=== PATIENT | male | born 1995 | race Caucasian/White ===

== ENCOUNTER 2019-08-09 18:43 | Emergency (ER) | payer OTHER, SELFPAY ==
[2019-08-09 18:48] VITALS: BP 149/81; PULSE 94; RESP 16; TEMP 36.9; O2SAT 96; BMI 25.1
--- NOTE | 2019-08-09 19:05 | XR_ITS ---
WS: [id number] XR knee RT 3V* [id number] REASON FOR EXAM: pain/trauma FINDINGS: The meniscal spaces are normal. The patella tibial space is normal as well as the patella t ibial articulation. No destructive changes or fractures. XR/XR knee RT 3V* [id number] IMPRESSION: Negative right knee.
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
[2019-08-09] MEDS: tetanus-dipt-pertussis 0.5 mL SDV IM (19:19)
[2019-08-09] MEDS: cephALEXin 500 mg Capsule PO (20:29)
[2019-08-09 20:33] VITALS: BP 134/76; PULSE 74; RESP 16; O2SAT 99
== END 2019-08-09 20:34 | disposition home or self-care (01) ==
PROVIDERS: Emergency Provider Nurse Practitioner Family
DX: S01.81XA Laceration without foreign body of other part of head, initial encounter (principal); S81.812A Laceration without foreign body, left lower leg, initial encounter; V29.9XXA Motorcycle rider (driver) (passenger) injured in unspecified traffic accident, initial encounter; Z23 Encounter for immunization
CPT/HCPCS: 12001; 12013; 12345; 73562; 90715; 99281; 99283; J2001

== ENCOUNTER 2019-09-03 06:13 | Observation (INO) | payer OTHER, SELFPAY ==
[2019-09-03] VITALS (24 sets, daily range): BP systolic 100–148; BP diastolic 50–82; PULSE 57–101; RESP 8–26; TEMP 36.8–37.3; O2SAT 92–100; BMI 24.3
--- NOTE | 2019-09-03 06:32 | ECG_ITS ---
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 Measurements Intervals [place] Rate: 73 P: 66 [place]: 193 QRS: 56 QRSD: 101 T: 40 QT: 345 QTc: 380 Interpretive Statements SINUS RHYTHM POSSIBLE RIGHT VENTRICULAR CONDUCTION DELAY [RSR (QR) IN V1/V2] INTERPRETATION BASED ON A DEFAULT AGE OF 40 YEARS Compared to ECG 01/05/2018 16:20:20 Incomplete right bundle-branch block no longer present Electronically Signed On 09-03-2019 19:04:32 CDT by Simi Cardona M.D. [id number] f
--- NOTE | 2019-09-03 06:32 | CTR_ITS ---
PROCEDURE INFORMATION: Exam: CT Head Without Contrast Exam date and time: 09/03/2019 6:34 AM Age: 23 years old Clinical indication: Other: Seizure; Additional info: Seizure, head injury 2 weeks ago TECHNIQUE: Imaging protocol: Computed tomography of the head without contrast. Radiation optimization: All CT scans at this facility use at least one of these dose optimization techniques: automated exposure control; mA and/or kV adjustment per patient size (includes targeted exams where dose is matched to clinical indication); or iterative reconstruction. COMPARISON: CT head wo con* [id number] 01/05/2018 9:04 AM RADIATION DOSE METRICS: Total DLP (mGy-cm): 862.49 FINDINGS: Brain: No acute intracranial hemorrhage or mass effect. No definite acute infarct by CT. MRI could be more sensitive/specific for detection, as clinically directed. Ventricles: Ventricle size is normal for age. Bones/joints: No definite acute skull fracture. Sinuses: Included paranasal sinuses are essentially clear. Mastoid air cells: No significant acute finding. CT/CT head wo con* [id number] IMPRESSION: 1. No acute intracranial hemorrhage or mass effect. 2. No definite acute infarct by CT, see above. 3. Other findings discussed above. Radiation Dose CTDIVOL = (mGy): DLP = 862.49 (mGy-cm)
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
[2019-09-03] MEDS: LORazepam 2 mg/mL INJ 1 mL (08:28)
[2019-09-03] MEDS: LORazepam 2 mg/mL INJ 1 mL 1 MG IVP (08:28)
[2019-09-03] MEDS: LORazepam 2 mg/mL INJ 1 mL IVP ×2 (08:30)
[2019-09-03] MEDS: sodium chloride 0.9% 1,000 mL Bolus 999 ML IV (09:08)
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
[2019-09-03 09:55] LABS: Basophils # 0.1 10^3/uL (0.0-0.1); Basophils % 0.4 %; Eosinophils # 0.1 10^3/uL (0.0-0.8); Eosinophils % 0.5 %; Hematocrit 41.1 % (42.0-52.0); Hemoglobin 13.3 g/dL (11.7-16.6); Lymphocytes # 1.5 10^3/uL (0.8-4.8); Lymphocytes % 8.8 %; Mean Corpuscular HGB Conc 32.4 g/dL (30.0-36.0); Mean Corpuscular Hemoglobin 27.9 pg (28.0-34.0); Mean Corpuscular Volume 86.2 fL (80-94); Mean Platelet Volume 8.9 fL (7.4-10.4); Monocytes # 0.7 10^3/uL (0.2-0.9); Monocytes % 4.3 %; Neutrophils # 14.26 10^3/uL (1.8-7.7); Neutrophils % 85.5 %; Nucleated Red Blood Cells % 0 %; Platelet Count 316 10^3/cmm (130-400); Red Blood Count 4.77 10^6/uL (4.1-5.3); Red Cell Distribution Width 13.4 % (12.1-15.1); White Blood Count 16.7 10^3/uL (4.0-10.0)
--- NOTE | 2019-09-03 09:55 | PC.NURSE ---
At 0822 patient soft restraints removed and patient moved to restraint bed. Physician, security, and nursing staff at bedside.
[2019-09-03 10:06] LABS: Amphetamines Screen Urine Negative (Negative); Barbiturates Screen Urine Negative (Negative); Benzodiazepines Screen Urine Negative (Negative); Cocaine Screen Urine Negative (Negative); Opiate Screen Urine Negative (Negative); PCP Screen Urine Negative (Negative); THC Screen Urine Positive (Negative)
[2019-09-03 10:09] LABS: Add Urine Microscopic? YES; Bilirubin Urine Neg (NEGATIVE); Blood Urine 2+ (Negative); Glucose Urine UA Norm (Normal); Ketones Urine 1+ (Negative); Leukocyte Esterase Urine Negative (Negative); Nitrate Urine Negative (Negative); Protein Urine Neg (Negative); Urine Appearance Clear (CLEAR); Urine Color Yellow (Yellow); Urobilinogen Urine Norm (Negative); pH Urine 5 (5-7)
[2019-09-03 10:10] LABS: Add Urine Culture? No; Bacteria Urine TRACE; RBC Urine 0-4 /hpf (0-2)
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
[2019-09-03 10:14] LABS: Creatine Phosphokinase 290 U/L (39-308)
[2019-09-03 10:15] LABS: Alanine Aminotransferase 26 U/L (0-41); Albumin Level 4.5 g/dL (3.5-5.2); Alkaline Phosphatase 72 IU/L (40-130); Anion Gap 14.5 (5-19); Aspartate Amino Transferase 22 U/L (0-40); Blood Urea Nitrogen 11 mg/dL (6-20); Calcium 8.9 mg/dL (8.5-10.5); Carbon Dioxide 21 mmol/L (22-29); Chloride 108 mmol/L (98-107); Globulin 2.4 g/dL (1.3-4.6); Glomerular Filtration Rate 117.8 mL/min (90-130); Glucose 109 mg/dL (65-115); Osmolality Calculated 287 mOsm/kg (285-295); Potassium 3.5 mmol/L (3.5-5.1); Sodium 140 mmol/L (136-145); Total Bilirubin 0.4 mg/dL (0.15-1.2); Total Protein 6.9 g/dL (6.6-8.7)
--- NOTE | 2019-09-03 10:15 | PC.NURSE ---
this nurse tried to call and give report to ICU nurse
--- NOTE | 2019-09-03 10:15 | PC.NURSE ---
This nurse called to give report to ICU nurse. ICU did not take report at this time.
[2019-09-03 10:38] LABS: CKMB 2.3 ng/mL (0-10.4)
[2019-09-03 12:36] LABS: Thyroid Stimulating Hormone 0.81 uIU/mL (0.27-4.20)
--- NOTE | 2019-09-03 13:52 | PC.NURSE ---
verified ok to stop sitter at this time
--- NOTE | 2019-09-03 14:33 | PC.NURSE ---
pt resting quietly clairifed one on one sitter removed
--- NOTE | 2019-09-03 15:36 | PC.NURSE ---
awake up in room voided at this time . alert and cooperative
[2019-09-03] MEDS: sodium chloride 0.9% 1,000 ML 50 ML IV (15:37)
[2019-09-04] VITALS (11 sets, daily range): BP systolic 100–145; BP diastolic 50–76; PULSE 66–92; RESP 13–25; TEMP 36.8–37.3; O2SAT 98; BMI 24.3
--- NOTE | 2019-09-04 01:56 | PC.NURSE ---
patient watching tv, no complaints at this time. night has been uneventful with no seizure activity noted. patients v/s are wnl tele sr. also patient is neurologically intact . bed is padded for safety. 20g iv patent in rfa.
[2019-09-04 05:49] LABS: Basophils # 0.1 10^3/uL (0.0-0.1); Basophils % 0.6 %; Eosinophils # 0.2 10^3/uL (0.0-0.8); Eosinophils % 2.1 %; Hematocrit 39.5 % (42.0-52.0); Hemoglobin 12.7 g/dL (11.7-16.6); Lymphocytes # 1.8 10^3/uL (0.8-4.8); Mean Corpuscular HGB Conc 32.2 g/dL (30.0-36.0); Mean Corpuscular Hemoglobin 27.9 pg (28.0-34.0); Mean Corpuscular Volume 86.8 fL (80-94); Mean Platelet Volume 9.2 fL (7.4-10.4); Monocytes # 0.6 10^3/uL (0.2-0.9); Monocytes % 5.1 %; Nucleated Red Blood Cells % 0 %; Platelet Count 303 10^3/cmm (130-400); Red Blood Count 4.55 10^6/uL (4.1-5.3); Red Cell Distribution Width 13.7 % (12.1-15.1); White Blood Count 10.8 10^3/uL (4.0-10.0)
--- NOTE | 2019-09-04 08:38 | PM.DCS ---
Discharge Providers Date of Admission: 09/03/19 09:18 Date of Discharge: September 04, 2019 Attending Provider at Admission: Ashlee De Oliveira DO Attending Provider at Discharge: Jaycob Banuelos MD Diagnoses at Discharge Discharge Diagnosis (1) Grand mal seizure disorder: Status: Acute Problem details: Restart patient's Keppra 750 mg twice daily. Reason for Visit Reason for Visit: seizure Hospital Course Hospital Course: Herrera is a 23-year-old white male who presents to the hospital with seizure. He had taken himself off his Keppra about 6 months ago. Later he confided to nursing he also used some LSD. While in the ICU he recovered and had no further seizures after being put on IV Keppra. It was thought he could go home on September 03 as he was stable. He was counseled on seizure precautions of no swimming, no driving until cleared by neurology and no drug or alcohol use. Physical Exam Narrative: EXAM NARRATIVE: General exam is no apparent distress Cardiovascular regular in rhythm without murmur Lungs clear Abdomen is soft positive bowel sounds Extremities no cyanosis clubbing or edema Neuro no focal deficits Discharge Data Data Completed and Pending: Completed Studies During Hospitalization Category Date Time Status CT head wo con* 7 0450 Stat Cat Scan 09/03/19 06:32 Completed Pending at discharge Category Date Time Status Complete Blood Co unt w/Auto AM LABS Lab 09/05/19 04:00 Ordered Complete Blood Co unt w/Auto AM LABS Lab 09/06/19 04:00 Ordered Labs from last 24 hours 09/04/19 09/03/19 09/03/19 04:59 09:38 09:38 WBC 10.8 H RBC 4.55 Hgb 12.7 Hct 39.5 L MCV 86.8 MCH 27.9 L MCHC 32.2 RDW 13.7 Plt Count 303 MPV 9.2 Neut % (Auto) 75.0 Lymph % (Auto) 17.0 [place] % (Auto) 5.1 Eos % (Auto) 2.1 Baso % (Auto) 0.6 Neut # (Auto) 8.10 H Lymph # (Auto) 1.8 [place] # (Auto) 0.6 Eos # (Auto) 0.2 Baso # (Auto) 0.1 Nucleated RBC % (a uto) 0 Nucleated RBCs # 0.0 Sodium Potassium Chloride Carbon Dioxide Anion Gap BUN Creatinine GFR Calculation Glucose Calculated Osmolal ity Calcium Total Bilirubin AST ALT Alkaline Phosphata se Creatine Kinase 290 CK-MB (CK-2) 2.3 CK-MB (CK-2) Rel I ndex Total Protein Albumin Globulin TSH 0.81 Urine Color Urine Appearance Urine pH Ur Specific Gravit y Urine Protein Urine Glucose (UA) Urine Ketones Urine Blood Urine Nitrate Urine Bilirubin Urine Urobilinogen Ur Leukocyte Corrine ase Urine RBC Urine WBC Ur Squamous Epith Cells Amorphous Sediment Urine Bacteria Urine Opiates Scre en Ur Barbiturates Sc reen Ur Phencyclidine S crn Ur Amphetamines Sc reen U Benzodiazepines Scrn Urine Cocaine Scre en U Marijuana (THC) Screen 09/03/19 09/03/19 09/03/19 09:38 09:38 09:37 WBC 16.7 H RBC 4.77 Hgb 13.3 Hct 41.1 L MCV 86.2 MCH 27.9 L MCHC 32.4 RDW 13.4 Plt Count 316 MPV 8.9 Neut % (Auto) 85.5 Lymph % (Auto) 8.8 [place] % (Auto) 4.3 Eos % (Auto) 0.5 Baso % (Auto) 0.4 Neut # (Auto) 14.26 H Lymph # (Auto) 1.5 [place] # (Auto) 0.7 Eos # (Auto) 0.1 Baso # (Auto) 0.1 Nucleated RBC % (a uto) 0 Nucleated RBCs # 0.0 Sodium 140 Potassium 3.5 Chloride 108 H Carbon Dioxide 21 L Anion Gap 14.5 BUN 11 Creatinine 0.8 GFR Calculation 117.8 Glucose 109 Calculated Osmolal ity 287 Calcium 8.9 Total Bilirubin 0.4 AST 22 ALT 26 Alkaline Phosphata se 72 Creatine Kinase CK-MB (CK-2) CK-MB (CK-2) Rel I ndex Total Protein 6.9 Albumin 4.5 Globulin 2.4 TSH Urine Color Urine Appearance Urine pH Ur Specific Gravit y Urine Protein Urine Glucose (UA) Urine Ketones Urine Blood Urine Nitrate Urine Bilirubin Urine Urobilinogen Ur Leukocyte Corrine ase Urine RBC Urine WBC Ur Squamous Epith Cells Amorphous Sediment Urine Bacteria Urine Opiates Scre en Negative Ur Barbiturates Sc reen Negative Ur Phencyclidine S crn Negative Ur Amphetamines Sc reen Negative U Benzodiazepines Scrn Negative Urine Cocaine Scre en Negative U Marijuana (THC) Screen Positive H 09/03/19 09:37 WBC RBC Hgb Hct MCV MCH MCHC RDW Plt Count MPV Neut % (Auto) Lymph % (Auto) [place] % (Auto) Eos % (Auto) Baso % (Auto) Neut # (Auto) Lymph # (Auto) [place] # (Auto) Eos # (Auto) Baso # (Auto) Nucleated RBC % (a uto) Nucleated RBCs # Sodium Potassium Chloride Carbon Dioxide Anion Gap BUN Creatinine GFR Calculation Glucose Calculated Osmolal ity Calcium Total Bilirubin AST ALT Alkaline Phosphata se Creatine Kinase CK-MB (CK-2) CK-MB (CK-2) Rel I ndex Total Protein Albumin Globulin TSH Urine Color Yellow Urine Appearance Clear Urine pH 5 Ur Specific Gravit y 1.020 Urine Protein Neg Urine Glucose (UA) Norm Urine Ketones 1+ H Urine Blood 2+ H Urine Nitrate Negative Urine Bilirubin Neg Urine Urobilinogen Norm Ur Leukocyte Corrine ase Negative Urine RBC 0-4 H Urine WBC None Ur Squamous Epith Cells None Amorphous Sediment Not Reportable Urine Bacteria Trace Urine Opiates Scre en Ur Barbiturates Sc reen Ur Phencyclidine S crn Ur Amphetamines Sc reen U Benzodiazepines Scrn Urine Cocaine Scre en U Marijuana (THC) Screen Vitals: Last Vital Signs Temp 98.3 F 09/04/19 08:00 Pulse 83 09/04/19 08:00 Resp 13 09/04/19 08:00 BP 118/62 09/04/19 08:00 Pulse Ox 98 09/04/19 05:00 Discharge Plan Discharge Patient Disposition: Home, Self-Care Condition: Stable Prescriptions: New levetiracetam [Keppra XR] 750 mg tablet extended release 24 hr 750 mg PO BID Qty: 60 RF: 0 No Action No Known Home Medications RF: 0 Discharge Orders: Discharge Order (Routine); Ordered 09/04/19 Ordered By: Jaycob Banuelos Referrals: Esperanza Carranza MD [Physician] - 2 weeks Discharge Diet: Regular Discharge Activity: Limit activity as instructed Activity Restrictions/Additional Instructions: No driving until follow-up with neurology in their evaluation. No swimming. Take all medicine as prescribed. No alcohol or drug use. Follow-up with primary care provider as well 3 to 5 days. Discharge Attestations Time Spent in Discharge Care*: greater than 30 min Quality Metrics Clinical Quality Measures During this hospital stay, did patient experience: None Coding Level of Care Code Acute Nutrition Services Associate for Marco Batres Diagnoses Grand mal seizure disorder G40.409
== END 2019-09-04 10:30 | disposition home or self-care (01) ==
LOC: ER 09:39 → ICU 09:44
PROVIDERS: Emergency Medicine; Admitting Provider Family Medicine; Visit Provider Internal Medicine
DX: G40.409 Other generalized epilepsy and epileptic syndromes, not intractable, without status epilepticus (principal)
CPT/HCPCS: 12345; 36415; 70450; 80053; 80306; 81001; 81003; 82550; 82553; 84443; 85025; 93005; 96361; 96365; 96366; 96374; 96375; 96376; 99285; G0378; J1953; J2060; J7030

== ENCOUNTER → 2019-11-09 14:53 | Outpatient (BNVA) | payer OTHER, SELFPAY | PROVIDERS: Visit Provider Specialist | DX: G40.409 Other generalized epilepsy and epileptic syndromes, not intractable, without status epilepticus (principal) | CPT/HCPCS: 99214 ==

== ENCOUNTER → 2020-12-06 14:48 | Outpatient (BNVA) | payer OTHER, SELFPAY | PROVIDERS: Visit Provider Specialist | DX: G40.109 Localization-related (focal) (partial) symptomatic epilepsy and epileptic syndromes with simple partial seizures, not intractable, without status epilepticus (principal); Z87.891 Personal history of nicotine dependence | CPT/HCPCS: 99213 ==

== ENCOUNTER 2021-02-06 18:42 | Emergency (ER) | payer OTHER, SELFPAY ==
--- NOTE | 2021-02-06 18:46 | XRR_ITS ---
PROCEDURE INFORMATION: Exam: XR Right Shoulder Exam date and time: 02/06/2021 6:46 PM Age: 25 years old Clinical indication: Pain; Shoulder; Right TECHNIQUE: Imaging protocol: XR Right shoulder. Views: 2 or more views. COMPARISON: No relevant prior studies available. FINDINGS: Bones/joints: Normal. Soft tissues: Normal. XR/XR shoulder RT min 2V* [id number] IMPRESSION: No acute findings.
[2021-02-06 19:04] VITALS: BP 136/74; PULSE 74; RESP 16; TEMP 36.7; O2SAT 97; BMI 26.4
--- NOTE | 2021-02-06 19:05 | ED_ITS ---
HPI - Extremity Injury (Upper) General: Chief Complaint: Extremity Problem,Nontraumatic Stated Complaint: rt shoulder pain Time Seen by Provider: 02/06/21 19:04 History of Present Illness: HPI narrative: 25-year-old male patient comes in with right shoulder discomfort. Patient reports he was lifting something above the head to set on the rack at work when he felt his shoulder slip out of place. Patient slowly put it down with pain and discomfort causing him to fall to the floor with pain. Patient reported some crepitus in his shoulder that resolved after manipulation back into a normal position. Patient appears well. Patient appears no acute distress. Patient reports that 1 year ago he had a seizure while asleep and since that time he has had a couple episodes of similar events. Patient appears well. Patient appears in no acute distress. complaint: injury to: right and shoulder Review of Systems General: Reports: 10 or more systems reviewed and unremarkable except in HPI and below Musc: Reports: other (Right shoulder injury.) [facility] ED PFSH: Medical History (Updated 02/06/21 @ 19:17 by BIRDIE Vasquez) Grand mal seizure disorder Restart patient's Keppra 750 mg twice daily. Surgical History No pertinent past surgical history Social History Smoking and tobacco status: former smoker Alcohol intake: current Alcohol intake frequency: holidays/special occasions only Household members: spouse Marital status: Physical Exam Const: COMMON NORMALS: no acute distress and patient oriented x3 GENERAL APPEARANCE: cooperative HENMT: COMMON NORMALS: normocephalic HEAD & SCALP: normal to inspection and normocephalic Eye: GENERAL EYE: appearance normal, both eyes and all related structures Neck/C-Spine: COMMON NORMALS: full ROM Chest: COMMONS NORMALS: normal inspection of the chest Resp: COMMON NORMALS: normal respiratory effort EFFORT & INSPECTION: Yes able to speak in complete sentences Cardio: COMMON NORMALS: regular rate and regular rhythm RATE: regular rate RHYTHM: regular rhythm GI: COMMON NORMALS: non-tender : COMMON NORMALS: Yes no CVA tenderness BLADDER/KIDNEY EXAM: Yes no CVA tenderness Back/Pelvis: COMMON NORMALS: no CVA tenderness and thoracic and lumbar spine normal to inspection Extremity: COMMON NORMALS: normal to inspection NARRATIVE EXTREMITY EXAM: Normal passive range of motion of the right shoulder. Patient does have some pain with anterior flexion of the right shoulder at greater than 90 degrees. Distal pulses and sensations are intact. Remainder of exam is unremarkable. Neuro: COMMON NORMALS: patient oriented x3 and moves all extremities Psych: COMMON NORMALS: mental status grossly normal and cooperative Skin: COMMON NORMALS: no rashes or lesions noted GENERAL SKIN EXAM: no rashes or lesions noted Course Vital Signs: Vital signs: Vital Signs Temperature 98.1 F 02/06/21 19:04 Pulse Rate 74 02/06/21 19:04 Respiratory Rate 16 02/06/21 19:04 Blood Pressure 136/74 02/06/21 19:04 Pulse Oximetry 97 02/06/21 19:04 MDM - Extremity Injury (Upper) MDM Narrative: Medical decision making narrative: Patient comes in today with complaints of right shoulder pain. Patient is had the pain on and off for the last year after a seizure and possible dislocation of the shoulder. Today patient was using his shoulder lifting above the head when he felt that it was out of place. On exam patient has no sign of dislocation. Patient has normal range of motion. Vital signs are normal. Differential diagnosis includes but not limited to dislocation with spontaneous reduction, rotator cuff injury, impingement syndrome. X-ray was unremarkable. I did know on the x-ray an option humeral head that may suggest a prior dislocation of the shoulder. I suspect a year ago patient might of had a shoulder dislocation while in seizure. No sign of dislocation was noted today. I recommended patient follow-up with orthopedic surgeon for further evaluation and treatment. Case management was requested to assist with follow-up appointment. Patient reported understanding and agreed to plan. Patient will be put on some diclofenac to help with pain and inflammation. Patient was recommended to use acetaminophen for further pain relief. I also recommended patient avoid overhead lifting as this is the area that patient has most of his pain and discomfort. Discharge Plan Discharge Patient Disposition: Home Clinical Impression: Rotator cuff disorder Qualifiers: Laterality: right Qualified Code(s): M67.911 - Unspecified disorder of synovium and tendon, right shoulder Condition: Stable Prescriptions: New diclofenac sodium 75 mg tablet,delayed release (DR/EC) 75 mg PO BID Qty: 20 RF: 0 No Action Keppra XR 750 mg tablet extended release 24 hr 1,500 mg PO DAILY Qty: 60 RF: 11 Discharge Orders: Discharge ED (Routine); Ordered 02/06/21 Ordered By: Clyde Lopez Discharge Diet: Usual diet Discharge Activity: Increase activity as tolerated Patient Instructions: Rotator Cuff Injury (ED), Rotator Cuff Injury Exercises (DC) Activity Restrictions/Additional Instructions: Activity as tolerated. Avoid overhead lifting and straining with the right shoulder. I suspect rotator cuff injury due to your prior event that occurred 1 year ago. Use ice to the area for further pain relief. Use diclofenac twice daily to help with pain and inflammation. Use acetaminophen, Tylenol, further pain relief. Follow-up with primary care as needed. I will place a consult request in with case management for orthopedic follow-up. Stand Alone Forms: Work/School Release Coding Level of Care Code ED Motor And Generator Brush Maker for Marco Batres
[2021-02-06 19:23] VITALS: RESP 16
--- NOTE | 2021-02-08 10:21 | DCPLANNER ---
[employer] account manager had message to schedule a follow up appointment for patient with ortho. ocean export account manager called the ortho clinic, spoke with Santa, gave clinic patients information. [employer] account manager was told that patients information would be printed and reviewed. Clinic will call patient with appointment information.
--- NOTE | 2021-02-09 07:51 | DCPLANNER ---
Patient has a follow up appointment scheduled for Saturday, February 13, 2021 at 1:[address] Vann at [facility]. Clinic will call patient with appointment information.
--- NOTE | 2021-02-16 11:24 | DCPLANNER ---
Patient had a follow up appointment scheduled for 02.13.21 with ortho - patient did attend appointment.
== END 2021-02-06 19:23 | disposition home or self-care (01) ==
PROVIDERS: Emergency Provider Nurse Practitioner Family
DX: M67.911 Unspecified disorder of synovium and tendon, right shoulder (principal); Z87.891 Personal history of nicotine dependence
CPT/HCPCS: 73030; 99282

== ENCOUNTER 2021-03-19 17:29 | Emergency (ER) | payer OTHER, SELFPAY ==
[2021-03-19 17:50] VITALS: BP 134/82; PULSE 107; RESP 18; TEMP 37.3; O2SAT 96; BMI 28.3
--- NOTE | 2021-03-19 17:54 | W.ED.FEVER ---
HPI - Fever General: Chief Complaint: Fever Stated Complaint: FEVER, DIZZY Time Seen by Provider: 03/19/21 17:44 History of Present Illness: HPI Narrative: Patient is a 25-year-old male who comes to the ED with fever and nasal congestion. Nasal congestion started yesterday. Today patient said he had a little bit of a headache that he described as some pressure due to his nasal congestion. He was sleepy today and when he woke up he felt a little warm and checked his temperature and it was 100.2. He did not take any Tylenol or Motrin before coming to the ED. He came here to the ED to get checked out and to get tested for COVID-19. Associated symptoms: Reports nasal congestion; Deny abdominal pain, flank pain, chills, chest pain, diarrhea, dysuria, headache(s), nausea or vomiting Review of Systems Const: Reports: fever(s) and fatigue; Denies: chills or body aches Eyes: Denies: change in vision or eye discomfort ENMT: Reports: nasal congestion; Denies: throat pain, odynophagia or nasal discharge Card: Denies: chest pain, palpitations, edema, swelling of feet/ankles, dyspnea on exertion or orthopnea Resp: Denies: dyspnea, productive cough or non-productive cough GI: Denies: abdominal pain, nausea, vomiting, diarrhea, constipation or hematochezia : Denies: flank pain, difficulty urinating, dysuria or hematuria Musc: Denies: neck pain, back pain or extremity swelling Skin/Breast: Denies: rash or new lesions Neuro: Denies: headache(s), numbness in extremities or weakness in extremities [facility] ED PFSH: Medical History Grand mal seizure disorder Restart patient's Keppra 750 mg twice daily. Surgical History No pertinent past surgical history Social History Alcohol intake: current Alcohol intake frequency: holidays/special occasions only Household members: spouse Marital status: Physical Exam Const: COMMON NORMALS: no acute distress, patient oriented x3, healthy appearing and alert GENERAL APPEARANCE: cooperative and comfortable HENMT: COMMON NORMALS: normocephalic HEAD & SCALP: normocephalic MOUTH: Normal oral and palatal mucosa present THROAT: posterior oropharynx normal and uvula midline Neck/C-Spine: COMMON NORMALS: supple GENERAL: Yes normal visual inspection Resp: COMMON NORMALS: normal respiratory effort, No retractions, No use of accessory muscles and clear to auscultation bilaterally AUSCULTATION: clear to auscultation bilaterally Cardio: COMMON NORMALS: regular rate, regular rhythm, S1 normal heart sound present, S2 normal heart sound present, No gallops present (Cardio), No clicks present (Cardio), No murmurs present (Cardio) and Peripheral pulses 2+ throughout RATE: regular rate RHYTHM: regular rhythm HEART SOUNDS: S1 normal heart sound present and S2 normal heart sound present PERIPHERAL PULSES: Peripheral pulses 2+ throughout GI: COMMON NORMALS: Normal to inspection, nondistended, normoactive bowel sounds present, Soft to palpation, non-tender and no masses PALPATION: Yes Soft to palpation : COMMON NORMALS: Yes no CVA tenderness BLADDER/KIDNEY EXAM: Yes no CVA tenderness Back/Pelvis: COMMON NORMALS: no CVA tenderness Extremity: COMMON NORMALS: normal to inspection Neuro: COMMON NORMALS: patient oriented x3 and moves all extremities SENSORIUM/ORIENTATION: Yes alert SPEECH: speech normal GAIT: Yes Normal gait present Skin: GENERAL SKIN EXAM: dry skin Course Vital Signs: Vital signs: Vital Signs Temperature 99.1 F 03/19/21 17:50 Pulse Rate 107 H 03/19/21 17:50 Respiratory Rate 18 03/19/21 17:50 Blood Pressure 134/82 03/19/21 17:50 Pulse Oximetry 96 03/19/21 17:50 MDM - Fever MDM Narrative: Medical decision making narrative: Patient is a 25-year-old male who comes to the ED with fever, congestion and fatigue. Symptoms started yesterday. He like to get Covid tested. Vital stable on. Exam of patient shows a healthy nontoxic-appearing 25-year-old male in no acute distress or pain. Rest of exam is benign. Patient was seen while in triage and he appears stable for discharge home. COVID-19 testing was done and sent to [facility] is pending. Patient diagnosed with symptoms of upper respiratory infection and an encounter for laboratory test for COVID-19. He was told to follow-up with his PCP in 7 to 10 days for reevaluation. He was told to contact the hospital in the next 2 days to get his Covid 19 test results. Return to ED precautions given. Patient understood agree with plan. Discharge Plan Discharge Patient Disposition: Home Clinical Impression: Symptoms of upper respiratory infection (URI), Encounter for laboratory testing for COVID-19 virus Condition: Stable Prescriptions: No Action Keppra XR 750 mg tablet extended release 24 hr 1,500 mg PO DAILY Qty: 60 RF: 11 diclofenac sodium 75 mg tablet,delayed release (DR/EC) 75 mg PO BID Qty: 20 RF: 0 Discharge Orders: Discharge ED (Routine); Ordered 03/19/21 Ordered By: Nithin Mccall Discharge Diet: Regular Discharge Activity: Increase activity as tolerated Patient Instructions: Upper Respiratory Infection (ED), COVID-19: Slow the Coronavirus Spread (ED) Activity Restrictions/Additional Instructions: Follow-up with medical provider as directed in 7 to 10 days reevaluation. You were tested for COVID-19 here in the ED and the results showed be back in the next 36 to 48 hours. we ask that you be mindful and self quarantine until results are back to limit exposures and spread of virus. You can call [id number] to get your COVID-19 test results take [id number] Tylenol or Motrin for any fevers or headaches. Make sure you drink plenty of fluids and stay hydrated. Return to the ER or your medical provider if condition worsens. Please read and understand discharge instructions. Thank you for choosing [facility] for your healthcare needs today. Please realize this is an emergency room and that we are providing you with a medical screening exam and this may not be complete and all inclusive of all the testing and or work up that you may need to determine your ailment or severity of your illness. It is very important that you follow up as instructed or that you return to the Emergency Department should you have concerns or if your condition changes or worsens in any way. Coding Level of Care Code ED Product Tester Fiberglass for Marco Batres Exam Comprehensive
[2021-03-21 14:58] LABS: Quest SARS-CoV-2 RNA DETECTED (NOT DETECTED)
--- NOTE | 2021-03-22 18:26 | PC.NURSE ---
Has No voice mail set up
== END 2021-03-19 18:17 | disposition home or self-care (01) ==
PROVIDERS: Emergency Provider Physician Assistant
DX: U07.1 COVID-19 (principal)
CPT/HCPCS: 87635; 99282

== ENCOUNTER 2021-04-17 17:33 | Emergency (ER) | payer OTHER, SELFPAY ==
[2021-04-17 17:52] VITALS: BP 132/84; PULSE 78; RESP 16; TEMP 37.1; O2SAT 97; BMI 25.7
--- NOTE | 2021-04-17 17:54 | W.ED.DENTAL ---
HPI - Dental/Oral General: Chief complaint: Dental/Oral Stated complaint: Dentist says he has an infected tooth Time Seen by Provider: 04/17/21 17:53 History of Present Illness: Patient comes in with left upper molar discomfort. Patient reports some swelling to the gums. Patient had talked to his dental office and they recommended he be put on antibiotics for a probable dental infection. Patient denies any previous problems with dental infections. Patient appears well. Patient appears in mild pain. Review of Systems General: Reports: 10 or more systems reviewed and unremarkable except in HPI and below ENMT: Reports: dental pain PFS ED PFSH: Medical History (Updated 04/17/21 @ 17:59 by BIRDIE Vasquez) Grand mal seizure disorder Restart patient's Keppra 750 mg twice daily. Surgical History No pertinent past surgical history Social History Alcohol intake: current Alcohol intake frequency: holidays/special occasions only Household members: spouse Marital status: Physical Exam Const: COMMON NORMALS: alert HENMT: COMMON NORMALS: normocephalic and TM's normal bilaterally HEAD & SCALP: normocephalic TYMPANIC MEMBRANE: TM's normal bilaterally MOUTH: Normal oral and palatal mucosa present TEETH & GINGIVA: Yes gingiva abnormal (Left upper molar area) edematous and tender THROAT: posterior oropharynx normal Neck/C-Spine: COMMON NORMALS: full ROM and no lymphadenopathy Resp: COMMON NORMALS: normal respiratory effort and clear to auscultation bilaterally AUSCULTATION: clear to auscultation bilaterally Cardio: COMMON NORMALS: regular rate and regular rhythm RATE: regular rate RHYTHM: regular rhythm Extremity: COMMON NORMALS: no pedal edema Neuro: SENSORIUM/ORIENTATION: Yes alert Psych: COMMON NORMALS: cooperative Skin: COMMON NORMALS: no rashes or lesions noted GENERAL SKIN EXAM: no rashes or lesions noted Course Vital Signs: Vital signs: Vital Signs Temperature 98.7 F 04/17/21 17:52 Pulse Rate 78 04/17/21 17:52 Respiratory Rate 16 04/17/21 17:52 Blood Pressure 132/84 04/17/21 17:52 Pulse Oximetry 97 04/17/21 17:52 MDM - Dental/Oral Medical Decision Making 25-year-old male patient comes in today with complaints of dental pain and swelling to the gingiva in the left upper molar area. On exam patient does have some erythema and edema to the gingival tissue of the area around the second molar in the left upper jaw. No obvious abscess is noted. Posterior pharynx is normal. Vital signs are normal. Differential diagnosis includes but not limited to periapical abscess, gingivitis, dental carry. Patient be placed on clindamycin 300 mg 3 times a day for the next 7 days. Patient was recommended to follow-up with primary care for further instruction. Patient reported understanding and agreed to plan. Discharge Plan Discharge Patient Disposition: Home Clinical Impression: Dental abscess Condition: Stable Prescriptions: New clindamycin HCl 300 mg capsule 300 mg PO TID 7 Days Qty: 21 0RF No Action Keppra XR 750 mg tablet extended release 24 hr 1,500 mg PO DAILY Qty: 60 11RF diclofenac sodium 75 mg tablet,delayed release (DR/EC) 75 mg PO BID Qty: 20 0RF Discharge Orders: Discharge ED (Routine); Ordered 04/17/21 Ordered By: Clyde Lopez Discharge Diet: Usual diet Discharge Activity: Increase activity as tolerated Patient Instructions: Dental Abscess (ED) Activity Restrictions/Additional Instructions: Good oral care. Drink plenty of water with antibiotic. Use acetaminophen and ibuprofen for pain. Follow-up with primary care for further instruction. Follow-up with dentist for definitive care. Return to ER for new concerns. Coding Level of Care Code ED Mobility Architect Manager for Marco Batres
[2021-04-17] MEDS: clindamycin 150 mg Capsule 300 MG PO (18:02)
== END 2021-04-17 18:08 | disposition home or self-care (01) ==
PROVIDERS: Emergency Provider Nurse Practitioner Family
DX: K04.7 Periapical abscess without sinus (principal)
CPT/HCPCS: 99282

== ENCOUNTER → 2024-10-26 10:52 | Outpatient (BNVA) | payer BC, SELFPAY | DX: R50.9 Fever, unspecified (principal) | CPT/HCPCS: 87426 ==